=== PATIENT | female | born 1975 | race Caucasian/White ===

== ENCOUNTER 2022-03-22 09:00 | Outpatient (CLI) | payer BC ==
[~2022-03-22 09:00] MED LIST: FAMO1TAB30 PO; GLUC-138 PO; INUL1TAB3 PO; L.RH1CAP PO; LEVO5TAB2 PO; LORA-259 PO; MESA400C PO; MULT-1251 PO; MULT-976 PO; REGI10 IVP
[2022-03-22] MEDS ORDERED: GASTROGRAFIN 120 ML ONE ×2 (10:54→11:15)
== END 2022-03-22 19:05 | disposition home or self-care (01) ==
LOC: SRD 09:00
PROVIDERS: ATTEND Colon & Rectal Surgery
DX: C18.9 Malignant neoplasm of colon, unspecified (principal); Z98.890 Other specified postprocedural states; Z93.2 Ileostomy status
CPT/HCPCS: 74270; Q9963